=== PATIENT | female | born 1950 | race Asian ===

== ENCOUNTER 2017-02-28 05:22 | Inpatient (IN) | payer MEDICARE, MEDICAID ==
--- NOTE | 2017-02-28 05:39 | EDM.PDOC ---
ED HPI GENERAL MEDICAL PROBLEM - General Chief Complaint: General Stated Complaint: CHEST PAIN Time Seen by Provider: 02/28/17 05:39 Source of Information: Reports: Patient History Limitations: Reports: No Limitations - History of Present Illness INITIAL COMMENTS - FREE TEXT/NARRATIVE: 67 yo F who was brought to the ER by the EMS with h/o generalized weakness, ^ Fatigue associated with subjective sensation of SOB. Reports that symptoms have been ongoing for the past Few days. Appetite has been decreased but she denied any fever, chest pain, nausea or vomiting. Denied any Abdominal pain. Has not been having adequate urine output. Has been feeling very and thinks that the symptoms are worsening and patient presented to the ER for further evaluation Onset: Gradual Duration: Day(s): Associated Symptoms: Reports: Loss of Appetite, Malaise, Shortness of Breath - Related Data Allergies Allergy/AdvReac Type Severity Reaction Status Date / Time No Known Allergies Allergy Verified 02/28/17 05:45 Home Meds: Home Meds Albuterol [Ventolin HFA] 2 puff IN Q4HR PRN 05/23/16 [History] Alendronate Sodium [Fosamax] 70 mg PO WEEKLY 05/23/16 [History] Cholecalciferol (Vitamin D3) [Vitamin D3] 1,000 units PO DAILY 05/23/16 [History ] Losartan/Hydrochlorothiazide [Hyzaar 100-12.5 Tablet] 1 each PO DAILY 05/23/16 [ History] atorvaSTATin [Lipitor] 10 mg PO DAILY 05/23/16 [History] Acetaminophen [Tylenol] 650 mg PO Q4H PRN #0 tablet 05/25/16 [Rx] Diltiazem [Cardizem CD] 240 mg PO DAILY #30 cap.cd 05/25/16 [Rx] Docusate Sodium [Colace] 100 mg PO BID PRN #0 cap 05/25/16 [Rx] Omeprazole 20 mg PO 0600 cap.cr 05/25/16 [Rx] Polyethylene Glycol 3350 [MiraLAX] 17 gm PO DAILY PRN #0 packet 05/25/16 [Rx] Prednisone [IJD: predniSONE] 20 mg PO WITHBREAKFAST tablet 05/25/16 [Rx] Diltiazem HCl [Cartia Xt] 180 mg PO DAILY 02/28/17 [History] Fluticasone/Salmeterol [Advair HFA 115-21 MCG] 2 diskus INH BID 02/28/17 [ History] Furosemide [Lasix] 20 mg PO DAILY 02/28/17 [History] metFORMIN [Glucophage] 500 mg PO BIDMEALS 02/28/17 [History] Past Medical History HEENT History: Reports: Impaired Vision, Other (See Below) Other HEENT History: 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 Cardiovascular History: Reports: Hypertension Respiratory History: Reports: Cystic Fibrosis, SOB APPLICATION SPEC History: Reports: - Past Surgical History HEENT Surgical History: Reports: Oral Surgery Social & Family History - Tobacco Use Smoking Status *Q: Never Smoker Second Hand Smoke Exposure: No - Caffeine Use Caffeine Use: Reports: Coffee, Tea - Recreational Drug Use Recreational Drug Use: No ED ROS GENERAL - Review of Systems Review Of Systems: See Below Constitutional: Reports: Weakness, Fatigue, Decreased Appetite HEENT: Reports: No Symptoms Respiratory: Reports: No Symptoms Cardiovascular: Reports: Dyspnea on Exertion, Edema Endocrine: Reports: No Symptoms GI/Abdominal: Reports: No Symptoms : Reports: No Symptoms Musculoskeletal: Reports: Other (Lower extremity swelling) Skin: Reports: No Symptoms Neurological: Reports: No Symptoms Psychiatric: Reports: No Symptoms Hematologic/Lymphatic: Reports: No Symptoms Immunologic: Reports: No Symptoms ED EXAM, GENERAL - Physical Exam Exam: See Below Exam Limited By: No Limitations General Appearance: Alert, WD/WN, No Apparent Distress Eye Exam: Bilateral Eye: EOMI Ears: Normal External Exam, Normal Canal, Hearing Grossly Normal, Normal TMs Nose: Normal Inspection, Normal Mucosa, No Blood Throat/Mouth: Normal Inspection, Normal Lips, Normal Teeth, Normal Gums, Normal Oropharynx Head: Atraumatic, Normocephalic Neck: Normal Inspection, Supple, Non-Tender, Full Range of Motion Respiratory/Chest: No Respiratory Distress, Lungs Clear, No Accessory Muscle Use , Chest Non-Tender Cardiovascular: Normal Peripheral Pulses, Regular Rate, Rhythm, Other ( Bilateral Lower extremity edema) GI/Abdominal: Normal Bowel Sounds, Soft, Non-Tender, No Organomegaly, No Distention, No Abnormal Bruit Back Exam: Normal Inspection, Full Range of Motion Extremities: Pedal Edema Neurological: Alert, Oriented, CN II-XII Intact, Normal Cognition Psychiatric: Normal Affect, Normal Mood Skin Exam: Warm Course - Vital Signs Last Recorded V/S: Last Vital Signs Temp 36.7 C 02/28/17 09:45 Pulse 97 02/28/17 09:45 Resp 20 02/28/17 09:45 BP 138/66 02/28/17 09:45 Pulse Ox 96 02/28/17 09:45 - Orders/Labs/Meds Orders: Active Orders 24 hr Category Date Time Status EKG Documentation Completion [RC] ASDIRECTED Care 02/28/17 06:04 Active RT Aerosol Therapy [RC] ASDIRECTED Care 02/28/17 05:44 Active Chest 1V Frontal [CR] Stat Exams 02/28/17 06:38 Taken TSH ULTRASENSITIVE [CHEM] Stat Lab 02/28/17 05:55 Received Sodium Chloride 0.9% [Saline Flush] Med 02/28/17 07:13 Active 10 ml FLUSH ASDIRECTED PRN Peripheral IV Insertion Adult [OM.PC] Routine Oth 02/28/17 07:13 Ordered EKG 12 Lead [EK] Routine Ther 02/28/17 06:04 Ordered Medication Orders Enoxaparin Sodium (Lovenox) 30 mg SUBCUT DAILY ESTUARDO Furosemide (Lasix) 40 mg IVPUSH DAILY ESTUARDO Insulin Aspart (Novolog) 0 unit SUBCUT TIDMEALS ESTUARDO PRN Reason: Protocol Sodium Chloride (Saline Flush) 10 ml FLUSH ASDIRECTED PRN PRN Reason: Keep Vein Open Last Admin: 02/28/17 07:10 Dose: 10 ml Sodium Chloride (Saline Flush) 10 ml FLUSH ASDIRECTED PRN PRN Reason: Keep Vein Open Labs: Laboratory Tests 02/28/17 02/28/17 02/28/17 Range/Units 05:55 05:55 05:55 WBC 12.8 H (4.5-12.0) X10-3/uL RBC 3.79 (3.23-5.20) x10(6)uL Hgb 11.3 L (11.5-15.5) g/dL Hct 33.7 (30.0-51.3) % MCV 89.0 (80-96) fL MCH 29.8 (27.7-33.6) pg MCHC 33.5 (32.2-35.4) g/dL RDW 15.6 H (11.5-15.5) % Plt Count 233 (125-369) X10(3)uL MPV 7.4 (7.4-10.4) fL Add Manual Diff Yes Neutrophils % (Manual) 91 H (46-82) % Lymphocytes % (Manual) 5 L (13-37) % Monocytes % (Manual) 4 (4-12) % ABG pH (7.35-7.45) ABG pCO2 (35-45) mmHg ABG pO2 (83-108) mmHg ABG HCO3 (22-26) mmol/L ABG O2 Saturation (96-97) % ABG Base Excess (-2-2) Jacob Test O2 Delivery Device Sodium 132 L (135-145) mmol/L Potassium 4.2 (3.5-5.3) mmol/L Chloride 103 (100-110) mmol/L Carbon Dioxide 18 L (23-29) mmol/L BUN 35 H D (8-23) mg/dL Creatinine 2.0 H* (0.6-1.3) mg/dL Est Cr Clr Drug Dosing TNP Estimated GFR (MDRD) 25 L (>60) BUN/Creatinine Ratio 17.5 (9-20) Glucose 113 (80-116) mg/dL Lactic Acid (0.5-2.2) mmol/L Calcium 8.8 (8.6-10.2) mg/dL Magnesium (1.8-2.5) mg/dL Total Bilirubin 0.9 (0.1-1.3) mg/dL AST 20 (5-27) IU/L ALT 22 (14-26) IU/L Alkaline Phosphatase 76 (56-112) IU/L Troponin I (0.02-0.06) NG/ML C-Reactive Protein (0.0-1.0) mg/dL B-Natriuretic Peptide 48 (0-100) pg/mL Total Protein 6.0 (6.0-8.0) g/dL Albumin 3.4 (3.2-4.6) g/dL Globulin 2.6 g/dL Albumin/Globulin Ratio 1.3 Urine Color (YELLOW) Urine Appearance (CLEAR) Urine pH (5.0-6.5) Ur Specific Grant (1.010-1.025) Urine Protein (NEGATIVE) mg/dL Urine Glucose (UA) (NEGATIVE) mg/dL Urine Ketones (NEGATIVE) mg/dL Urine Occult Blood (NEGATIVE) Urine Nitrite (NEGATIVE) Urine Bilirubin (NEGATIVE) Urine Urobilinogen (NEGATIVE) mg/dL Ur Leukocyte Esterase (NEGATIVE) 02/28/17 02/28/17 02/28/17 Range/Units 05:55 05:55 05:55 WBC (4.5-12.0) X10-3/uL RBC (3.23-5.20) x10(6)uL Hgb (11.5-15.5) g/dL Hct (30.0-51.3) % MCV (80-96) fL MCH (27.7-33.6) pg MCHC (32.2-35.4) g/dL RDW (11.5-15.5) % Plt Count (125-369) X10(3)uL MPV (7.4-10.4) fL Add Manual Diff Neutrophils % (Manual) (46-82) % Lymphocytes % (Manual) (13-37) % Monocytes % (Manual) (4-12) % ABG pH (7.35-7.45) ABG pCO2 (35-45) mmHg ABG pO2 (83-108) mmHg ABG HCO3 (22-26) mmol/L ABG O2 Saturation (96-97) % ABG Base Excess (-2-2) Jacob Test O2 Delivery Device Sodium (135-145) mmol/L Potassium (3.5-5.3) mmol/L Chloride (100-110) mmol/L Carbon Dioxide (23-29) mmol/L BUN (8-23) mg/dL Creatinine (0.6-1.3) mg/dL Est Cr Clr Drug Dosing Estimated GFR (MDRD) (>60) BUN/Creatinine Ratio (9-20) Glucose (80-116) mg/dL Lactic Acid 1.9 (0.5-2.2) mmol/L Calcium (8.6-10.2) mg/dL Magnesium (1.8-2.5) mg/dL Total Bilirubin (0.1-1.3) mg/dL AST (5-27) IU/L ALT (14-26) IU/L Alkaline Phosphatase (56-112) IU/L Troponin I (0.02-0.06) NG/ML C-Reactive Protein 8.0 H* (0.0-1.0) mg/dL B-Natriuretic Peptide (0-100) pg/mL Total Protein (6.0-8.0) g/dL Albumin (3.2-4.6) g/dL Globulin g/dL Albumin/Globulin Ratio Urine Color (YELLOW) Urine Appearance (CLEAR) Urine pH (5.0-6.5) Ur Specific Grant (1.010-1.025) Urine Protein (NEGATIVE) mg/dL Urine Glucose (UA) (NEGATIVE) mg/dL Urine Ketones (NEGATIVE) mg/dL Urine Occult Blood (NEGATIVE) Urine Nitrite (NEGATIVE) Urine Bilirubin (NEGATIVE) Urine Urobilinogen (NEGATIVE) mg/dL Ur Leukocyte Esterase (NEGATIVE) 02/28/17 02/28/17 02/28/17 Range/Units 05:55 06:05 07:20 WBC (4.5-12.0) X10-3/uL RBC (3.23-5.20) x10(6)uL Hgb (11.5-15.5) g/dL Hct (30.0-51.3) % MCV (80-96) fL MCH (27.7-33.6) pg MCHC (32.2-35.4) g/dL RDW (11.5-15.5) % Plt Count (125-369) X10(3)uL MPV (7.4-10.4) fL Add Manual Diff Neutrophils % (Manual) (46-82) % Lymphocytes % (Manual) (13-37) % Monocytes % (Manual) (4-12) % ABG pH 7.42 (7.35-7.45) ABG pCO2 26 L (35-45) mmHg ABG pO2 77 L (83-108) mmHg ABG HCO3 17 L (22-26) mmol/L ABG O2 Saturation 96 (96-97) % ABG Base Excess -6.2 L (-2-2) Jacob Test Passed O2 Delivery Device Nasal cannula Sodium (135-145) mmol/L Potassium (3.5-5.3) mmol/L Chloride (100-110) mmol/L Carbon Dioxide (23-29) mmol/L BUN (8-23) mg/dL Creatinine (0.6-1.3) mg/dL Est Cr Clr Drug Dosing Estimated GFR (MDRD) (>60) BUN/Creatinine Ratio (9-20) Glucose (80-116) mg/dL Lactic Acid (0.5-2.2) mmol/L Calcium (8.6-10.2) mg/dL Magnesium 1.4 L (1.8-2.5) mg/dL Total Bilirubin (0.1-1.3) mg/dL AST (5-27) IU/L ALT (14-26) IU/L Alkaline Phosphatase (56-112) IU/L Troponin I (0.02-0.06) NG/ML C-Reactive Protein (0.0-1.0) mg/dL B-Natriuretic Peptide (0-100) pg/mL Total Protein (6.0-8.0) g/dL Albumin (3.2-4.6) g/dL Globulin g/dL Albumin/Globulin Ratio Urine Color Yellow (YELLOW) Urine Appearance Clear (CLEAR) Urine pH 5.0 (5.0-6.5) Ur Specific Grant 1.020 (1.010-1.025) Urine Protein Negative (NEGATIVE) mg/dL Urine Glucose (UA) Normal (NEGATIVE) mg/dL Urine Ketones Negative (NEGATIVE) mg/dL Urine Occult Blood Negative (NEGATIVE) Urine Nitrite Negative (NEGATIVE) Urine Bilirubin Negative (NEGATIVE) Urine Urobilinogen Normal (NEGATIVE) mg/dL Ur Leukocyte Esterase Negative (NEGATIVE) Meds: Medications Generic Name Dose Route Start Last Admin Trade Name Vinicioq PRN Reason Stop Dose Admin Enoxaparin Sodium 30 mg 03/01/17 09:00 Lovenox SUBCUT DAILY ESTUARDO Furosemide 40 mg 02/28/17 09:45 Lasix IVPUSH DAILY [facility] Insulin Aspart 0 unit 02/28/17 12:00 Novolog SUBCUT TIDMEALS [facility] Protocol Sodium Chloride 10 ml 02/28/17 07:13 02/28/17 07:10 Saline Flush FLUSH 10 ml ASDIRECTED PRN Administration Keep Vein Open Sodium Chloride 10 ml 02/28/17 09:33 Saline Flush FLUSH ASDIRECTED PRN Keep Vein Open Discontinued Medications Generic Name Dose Route Start Last Admin Trade Name Freq PRN Reason Stop Dose Admin Albuterol/Ipratropium 3 ml 02/28/17 05:44 02/28/17 06:09 Duoneb 3.0-0.5 Mg/3 Ml NEB 02/28/17 05:45 3 ml ONETIME ONE Administration Sodium Chloride 1,000 mls @ 500 mls/hr 07/15/17 06:41 02/28/17 07:12 Normal Saline IV 02/28/17 08:40 500 mls/hr .BOLUS ONE Administration Departure - Departure Time of Disposition: 09:48 Disposition: Admitted As Inpatient 65 Clinical Impression: ANA (acute kidney injury) - Discharge Information - My Orders Last 24 Hours: My Active Orders 02/28/17 05:44 RT Aerosol Therapy [RC] ASDIRECTED 02/28/17 05:55 TSH ULTRASENSITIVE [CHEM] Stat 02/28/17 06:04 EKG Documentation Completion [RC] ASDIRECTED EKG 12 Lead [EK] Routine 02/28/17 06:38 Chest 1V Frontal [CR] Stat 02/28/17 07:13 Sodium Chloride 0.9% [Saline Flush] 10 ml FLUSH ASDIRECTED PRN Peripheral IV Insertion Adult [OM.PC] Routine - Assessment/Plan Last 24 Hours: My Active Orders 02/28/17 05:44 RT Aerosol Therapy [RC] ASDIRECTED 02/28/17 05:55 TSH ULTRASENSITIVE [CHEM] Stat 02/28/17 06:04 EKG Documentation Completion [RC] ASDIRECTED EKG 12 Lead [EK] Routine 02/28/17 06:38 Chest 1V Frontal [CR] Stat 02/28/17 07:13 Sodium Chloride 0.9% [Saline Flush] 10 ml FLUSH ASDIRECTED PRN Peripheral IV Insertion Adult [OM.PC] Routine
[2017-02-28] MEDS ORDERED: Albuterol/Ipratropium 3.0-0.5 MG/3 ML Neb Soln NEB ONE (05:44)
[2017-02-28] MEDS ORDERED: Sodium Chloride 0.9% 1,000 ML IV ONE (06:41)
[2017-02-28] MEDS ORDERED: Sodium Chloride 0.9% 10 ML Syringe FLUSH PRN ×2 (07:13→09:33)
[2017-02-28] MEDS ORDERED: Albuterol 8 GM Inhaler INH PRN (09:48)
[2017-02-28] MEDS ORDERED: Polyethylene Glycol 3350 Powder 17 GM Packet PO PRN (09:48)
[2017-02-28] MEDS ORDERED: Docusate Sodium 100 MG Cap PO PRN (09:48)
[2017-02-28] MEDS ORDERED: Acetaminophen 325 MG Tab PO PRN (09:48)
--- NOTE | 2017-02-28 09:54 | PCM.HP ---
H&P History of Present Illness - General Date of Service: 02/28/17 Admit Problem/Dx: Admission Diagnosis/Problem Admission Diagnosis/Problem CHF, Congestive heart failure Source of Information: Patient, Family, Old Records - History of Present Illness Initial Comments - Free Text/Narative: 67-year-old female brought in by family because of shortness of breath. She complains that she been short of breath on [id number] exertion over the last couple days. Associated with swelling of the legs.She also complained of feeling dizzy at times, having a cough that is chronic nonproductive. Denied any chest pain. She has had no recent fever or chills. 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 Her baseline creatinine has been about 0.08 the last year but didn't 2 weeks ago it was noted to have gone up 1.34. Today's 2.0. - Related Data Allergies/Adverse Reactions: Allergies Allergy/AdvReac Type Severity Reaction Status Date / Time No Known Allergies Allergy Verified 02/28/17 05:45 Home Medications: Home Meds Albuterol [Ventolin HFA] 2 puff IN Q4HR PRN 05/23/16 [History] Alendronate Sodium [Fosamax] 70 mg PO WEEKLY 05/23/16 [History] Cholecalciferol (Vitamin D3) [Vitamin D3] 1,000 units PO DAILY 05/23/16 [History ] Losartan/Hydrochlorothiazide [Hyzaar 100-12.5 Tablet] 1 each PO DAILY 05/23/16 [ History] atorvaSTATin [Lipitor] 10 mg PO DAILY 05/23/16 [History] Acetaminophen [Tylenol] 650 mg PO Q4H PRN #0 tablet 05/25/16 [Rx] Diltiazem [Cardizem CD] 240 mg PO DAILY #30 cap.cd 05/25/16 [Rx] Docusate Sodium [Colace] 100 mg PO BID PRN #0 cap 05/25/16 [Rx] Omeprazole 20 mg PO 0600 cap.cr 05/25/16 [Rx] Polyethylene Glycol 3350 [MiraLAX] 17 gm PO DAILY PRN #0 packet 05/25/16 [Rx] Prednisone [IJD: predniSONE] 20 mg PO WITHBREAKFAST tablet 05/25/16 [Rx] Diltiazem HCl [Cartia Xt] 180 mg PO DAILY 02/28/17 [History] Fluticasone/Salmeterol [Advair HFA 115-21 MCG] 2 diskus INH BID 02/28/17 [ History] Furosemide [Lasix] 20 mg PO DAILY 02/28/17 [History] metFORMIN [Glucophage] 500 mg PO BIDMEALS 02/28/17 [History] Past Medical History HEENT History: Reports: Impaired Vision, Other (See Below) Other HEENT History: 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 Cardiovascular History: Reports: Heart Failure (Diastolic), Heart Murmur, Hypertension Respiratory History: Reports: SOB, Other (See Below) (Sarcoidosis). 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 Exam - Exam Exam: See Below - Vital Signs Vital Signs: Last Vital Signs Temp 98.0 F 02/28/17 09:45 Pulse 97 02/28/17 09:45 Resp 20 02/28/17 09:45 BP 138/66 02/28/17 09:45 Pulse Ox 96 02/28/17 09:45 Weight: 50.15 kg - Exam Quality Assessment: No: Supplemental Oxygen General: Alert, Oriented, Cooperative, Mild Distress HEENT: PERRLA, Hearing Intact, Mucosa Moist & Imperial, Nares Patent, Normal Nasal Septum, Posterior Pharynx Clear, Conjunctiva Clear, EOMI, EACs Clear, TMs Clear Neck: Supple, Trachea Midline, 2 Lungs: Crackles, Rales Cardiovascular: Regular Rate, Regular Rhythm, Systolic Murmur Abdomen: Normal Bowel Sounds, Soft (Female) Exam: Deferred Rectal (Female) Exam: Deferred Back Exam: Normal Inspection, Full Range of Motion, NT Extremities: Edema (++) Skin: Warm, Dry, Intact Neurological: Cranial Nerves Intact, Reflexes Equal Bilateral Neuro Extensive - Mental Status: Alert, Oriented x3, Normal Mood/Affect, Normal Cognition Neuro Extensive - Motor, Sensory, Reflexes: CN II-XII Intact, Normal Gait, Normal Reflexes Psychiatric: Depressed - Patient Data Result Diagrams: 02/28/17 05:55 02/28/17 05:55 Imaging Impressions Last 24 hrs: CXR-CHF EKG INTERPRETATION Rhythm: A-Fib *Q Meaningful Use (ADM) - VTE *Q VTE Criteria *Q: - Stroke *Q Stroke Criteria *Q: - AMI *Q AMI Criteria *Q: - Problem List (1) CHF (congestive heart failure), NYHA class III SNOMED Code(s): 046706492, 991044494 ICD Code: I50.9 - HEART FAILURE, UNSPECIFIED Status: Acute Current Visit : Yes Qualifiers: Congestive heart failure type: diastolic Congestive heart failure chronicity: acute on chronic Qualified Code(s): I50.33 - Acute on chronic diastolic (congestive) heart failure (2) Diabetes type 2, controlled SNOMED Code(s): 14341563 ICD Code: E11.9 - TYPE 2 DIABETES MELLITUS WITHOUT COMPLICATIONS Status: Chronic Current Visit: Yes Qualifiers: Diabetes mellitus complication status: without complication Diabetes mellitus group home insulin use: without termite exterminator helper use Qualified Code(s): E11.9 - Type 2 diabetes mellitus without complications (3) ANA (acute kidney injury) SNOMED Code(s): 34297355 ICD Code: N17.9 - ACUTE KIDNEY FAILURE, UNSPECIFIED Status: Acute Priority: Medium Current Visit: Yes (4) Essential hypertension SNOMED Code(s): 70942981 ICD Code: I10 - ESSENTIAL (PRIMARY) HYPERTENSION Status: Chronic Priority : Medium Current Visit: No (5) Sarcoidosis of lung SNOMED Code(s): 51940664 ICD Code: D86.0 - SARCOIDOSIS OF LUNG Status: Chronic Current Visit: No Problem Details: Stable. Continue Prednisone. (6) Moderate aortic regurgitation SNOMED Code(s): 33048773 ICD Code: I35.1 - NONRHEUMATIC AORTIC (VALVE) INSUFFICIENCY Status: Chronic Current Visit: Yes (7) Pulmonary fibrosis SNOMED Code(s): 00295941 ICD Code: J84.10 - PULMONARY FIBROSIS, UNSPECIFIED Status: Chronic Current Visit: Yes Problem List Initiated/Reviewed/Updated: Yes Orders Last 24hrs: Active Orders 24 hr Category Date Time Status Patient Status Manage Transfer [TRANSFER] Routine ADT 02/28/17 09:37 Active Patient Status [ADT] Routine ADT 02/28/17 09:33 Active Bedrest Bedside Commode [RC] ASDIRECTED Care 02/28/17 09:33 Active Blood Glucose Check, Bedside [RC] TIDMEALS Care 02/28/17 09:33 Active Height and Weight [RC] DAILY Care 02/28/17 09:33 Active Intake and Output [RC] QSHIFT Care 02/28/17 09:34 Active Oxygen Therapy [RC] PRN Care 02/28/17 09:33 Active VTE/DVT Education [RC] Per Unit Routine Care 02/28/17 09:33 Active Vital Signs [RC] Q4H Care 02/28/17 09:33 Active Consistent Carbohydrate Diet [DIET] Diet 02/28/17 Breakfast Active B-TYPE NATRIURETIC PEPTIDE,BNP [CHEM] AM Lab 03/01/17 05:11 Ordered BASIC METABOLIC PANEL,BMP [CHEM] AM Lab 03/01/17 05:11 Ordered CBC WITH AUTO DIFF [HEME] AM Lab 03/01/17 05:11 Ordered TROPONIN I [CHEM] AM Lab 03/01/17 05:11 Ordered Acetaminophen [Tylenol] Med 02/28/17 09:48 Ordered 650 mg PO Q4H PRN Albuterol [Ventolin HFA] Med 02/28/17 09:48 Ordered 2 puff INH Q4HR PRN Alendronate [Fosamax] Med 02/28/17 10:00 Ordered 70 mg PO WEEKLY Cholecalciferol (Vitamin D3) [Vitamin D3] Med 03/01/17 09:00 Ordered 1,000 units PO DAILY Diltiazem [Cardizem CD] Med 03/01/17 09:00 Ordered 180 mg PO DAILY Diltiazem [Cardizem CD] Med 03/01/17 09:00 Ordered 240 mg PO DAILY Docusate Sodium [Colace] Med 02/28/17 09:48 Ordered 100 mg PO BID PRN Enoxaparin [Lovenox] Med 03/01/17 09:00 Active 30 mg SUBCUT DAILY Fluticasone/Salmeterol [Advair HFA 115-21] Med 02/28/17 21:00 Ordered 2 diskus INH BID Furosemide [Lasix] Med 02/28/17 09:45 Active 40 mg IVPUSH DAILY Insulin Aspart [NovoLOG] Med 02/28/17 12:00 Active See Protocol SUBCUT TIDMEALS Omeprazole Med 03/01/17 06:00 Ordered 20 mg PO 0600 Polyethylene Glycol 3350 [MiraLAX] Med 02/28/17 09:48 Ordered 17 gm PO DAILY PRN Sodium Chloride 0.9% [Saline Flush] Med 02/28/17 09:33 Active 10 ml FLUSH ASDIRECTED PRN atorvaSTATin [Lipitor] Med 03/01/17 09:00 Ordered 10 mg PO DAILY predniSONE Med 03/01/17 08:00 Ordered 20 mg PO WITHBREAKFAST Saline Lock Insert [OM.PC] Routine Oth 02/28/17 09:33 Ordered Sequential Compression Device [OM.PC] Per Unit Routine Oth 02/28/17 09:34 Ordered Resuscitation Status Routine Resus Stat 02/28/17 09:33 Ordered Medication Orders Enoxaparin Sodium (Lovenox) 30 mg SUBCUT DAILY ESTUARDO Furosemide (Lasix) 40 mg IVPUSH DAILY ESTUARDO Insulin Aspart (Novolog) 0 unit SUBCUT TIDMEALS ESTUARDO PRN Reason: Protocol Sodium Chloride (Saline Flush) 10 ml FLUSH ASDIRECTED PRN PRN Reason: Keep Vein Open Last Admin: 02/28/17 07:10 Dose: 10 ml Sodium Chloride (Saline Flush) 10 ml FLUSH ASDIRECTED PRN PRN Reason: Keep Vein Open Assessment/Plan Comment:: Clinical presentation seems to cause suggest congestive heart failure. Her legs are swollen and she has rails on auscultation. I would think that the kidney injuries possibly due to the CHF. I'll admit her and diagnosed her with Lasix IV (she did get 1 L of normal saline the ER). Will continue supplemental oxygenation if necessary. My plan is to repeat a basic profile and BNP in the morning. We'll continue the rest of the current medications. She had an echocardiogram in 11/2016 that showed an ejection fraction 70%,with grade 1 diastolic dysfunction. Due to the frequent falls and weakness I believe we should consult physical therapy along with quality engineer medical device to determine disposition after the acute phase of a current presentation is treated
[2017-02-28] MEDS ORDERED: Alendronate 70 MG Tab PO SCH (10:00)
[2017-02-28] MEDS: Furosemide 40 MG/4 ML VIAL IVPUSH SCH (10:34)
[2017-02-28] MEDS ORDERED: predniSONE 20 MG Tab PO SCH (12:00)
[2017-02-28] MEDS ORDERED: predniSONE 10 MG Tab PO SCH (12:55)
[2017-02-28] MEDS: Formoterol/Mometasone 200-5 MCG 8.8 GM Inhaler IH SCH ×2 (13:11→20:24)
[2017-02-28] MEDS: Calcium Carbonate/Vitamin D3 1250 MG-200 Unit Tab PO SCH ×2 (13:12→20:23)
[2017-02-28] MEDS: Carvedilol 6.25 MG Tab PO SCH ×2 (13:12→20:23)
[2017-02-28] MEDS: Diltiazem 180 MG Cap.CD PO SCH (13:12)
[2017-02-28] MEDS: Pantoprazole 40 MG Tab.CR PO SCH (13:13)
[2017-02-28] MEDS: Cholecalciferol (Vitamin D3) 1,000 Unit Tab PO SCH (13:13)
[2017-02-28] MEDS: Aspirin 81 MG Tab.EC PO SCH (13:13)
[2017-02-28] MEDS: Insulin Aspart 100 Units/ML 3 ML Pen SUBCUT SCH ×2 (13:13→17:27)
[2017-02-28] MEDS: predniSONE 10 MG Tab PO SCH (14:20)
[2017-02-28] MEDS: Brimonidine/Timolol 0.2%/0.5% Ophth Soln 5 ML Bottle EYEBOTH SCH (20:23)
[2017-02-28] MEDS ORDERED: Acetaminophen/Diphenhydramine 500-25 MG Tab PO SCH (21:00)
[2017-03-01] MEDS: Pantoprazole 40 MG Tab.CR PO SCH (07:05)
[2017-03-01 07:55] VITALS: BP 113/56
[2017-03-01] MEDS: Insulin Aspart 100 Units/ML 3 ML Pen SUBCUT SCH (08:34)
[2017-03-01] MEDS: predniSONE 10 MG Tab PO SCH (08:37)
[2017-03-01] MEDS: Calcium Carbonate/Vitamin D3 1250 MG-200 Unit Tab PO SCH (08:37)
[2017-03-01] MEDS: Formoterol/Mometasone 200-5 MCG 8.8 GM Inhaler IH SCH (08:38)
[2017-03-01] MEDS: Diltiazem 180 MG Cap.CD PO SCH (08:38)
[2017-03-01] MEDS: Brimonidine/Timolol 0.2%/0.5% Ophth Soln 5 ML Bottle EYEBOTH SCH (08:38)
[2017-03-01] MEDS: Carvedilol 6.25 MG Tab PO SCH (08:38)
[2017-03-01] MEDS: Aspirin 81 MG Tab.EC PO SCH (08:39)
[2017-03-01] MEDS: Furosemide 40 MG/4 ML VIAL IVPUSH SCH (08:39)
[2017-03-01] MEDS: Cholecalciferol (Vitamin D3) 1,000 Unit Tab PO SCH (08:40)
[2017-03-01] MEDS ORDERED: Enoxaparin 30 MG/0.3 ML Syringe SUBCUT SCH (09:00)
[2017-03-01] MEDS ORDERED: Diltiazem 240 MG Cap.CD PO SCH (09:00)
--- NOTE | 2017-03-01 10:06 | PN ---
DATE SEEN: 03/01/2017 REASON FOR VISIT: CHF. HISTORY OF PRESENT ILLNESS: This is a 67-year-old female, who was seen yesterday because of weakness, shortness of breath, thought to be due to CHF and COPD. She feels better today and is able to walk without support to the bathroom and wants to go home. She has a history of pulmonary fibrosis, sarcoidosis, and type 2 diabetes, stable. REVIEW OF SYSTEMS: All other systems are negative. SOCIAL HISTORY: She does not smoke or drink. PHYSICAL EXAMINATION: GENERAL: She is nontoxic, well-nourished. VITAL SIGNS: Blood pressure is normal, pulse is 62, temperature 98.1. EARS NOSE AND THROAT: Negative. HEAD: Normal size. NECK: Supple. CHEST: Crackles on the bases. EXTREMITIES: 2+ peripheral edema. ABDOMEN: Soft and benign. LABORATORY DATA: Creatinine is 1.7 today, it was a 2.0 yesterday. Electrolytes are normal. IMPRESSION: 1. Congestive heart failure. 2. Acute kidney injury due to congestive heart failure. 3. Hypertension, stable. 4. Type 2 diabetes, stable. 5. Sarcoidosis, stable. 6. Pulmonary fibrosis, stable. 7. Diastolic dysfunction. PLAN: We will discharge her home today on Lasix 20 mg twice a day and advised her to follow up in the office for electrolytes check within two days. /[id number] TISH/JUANITA
--- NOTE | 2017-03-02 02:51 | DISCH ---
DISCHARGE DATE: 03/01/2017 REASON FOR ADMISSION: 1. CHF due to diastolic dysfunction. 2. Acute kidney injury. 3. Hypertension, benign essential. 4. Sarcoidosis. 5. Pulmonary fibrosis. BRIEF HISTORY AND HOSPITAL COURSE: A 67-year-old female, came in because of weakness, frequent falls, shortness of breath, difficulty breathing. Chest x- ray showed bilateral fluffy infiltrates suggestive of CHF and leg showed 2+ peripheral edema. She had crackles in the lungs. She was given initially 1 L of normal saline because of the kidney injury, but later got IV Lasix, symptoms improved. She was ready to go home today. She will be discharged home on Lasix 20 mg a day as the only difference from home medications. I advised to see Mehreen Rodriguez on Thursday with a BMP and I spent 35 minutes in the discharge of the patient. /[id number] TISH/JUANITA
--- NOTE | 2017-03-02 12:28 | CR ---
INDICATION: Shortness of breath. COMPARISON: PA and lateral chest 23 May 2016. CHEST: Moderate perihilar, bibasilar segmental atelectasis, and/or parenchymal scarring change with volume loss, stable. Moderate cardiomegaly, no interstitial edema, stable. No new focal consolidation, large pleural effusion , interstitial edema, or pneumothorax otherwise. IMPRESSION: No evidence of acute cardiopulmonary disease. MTDD
== END 2017-03-01 12:30 | disposition home health service (06) | DRG 682 ==
LOC: FB.ED 05:22 → FB.MS 09:31
PROVIDERS: ADMIT Family Medicine; ATTEND Family Medicine
DX: N17.9 Acute kidney failure, unspecified (principal); I50.30 Unspecified diastolic (congestive) heart failure; I50.33 Acute on chronic diastolic (congestive) heart failure; D86.9 Sarcoidosis, unspecified; J84.10 Pulmonary fibrosis, unspecified; I35.1 Nonrheumatic aortic (valve) insufficiency; E11.9 Type 2 diabetes mellitus without complications; R29.6 Repeated falls; I11.0 Hypertensive heart disease with heart failure
CPT/HCPCS: 36415; 36600; 71010; 80053; 81003; 82803; 83605; 83735; 83880; 84443; 84484; 85025; 86140; 93005; 96360; 96361; 99284; 99285; J7040; J7050; J7620; 80048; 82962; A9270-GY; J1650; J1940